=== PATIENT | male | born 1970 | race Caucasian/White ===

== ENCOUNTER 2016-05-20 09:11 | Emergency (ER) | payer OTHER ==
[~2016-05-20] VITALS: Ht 182.9 cm; Wt 100.0 kg
[2016-05-20 09:14] VITALS: BP 141/89; PULSE 64; RESP 14; O2SAT 98
--- NOTE | 2016-05-20 09:29 | ED.REPORT ---
HPI-General Illness Date of Service May 20, 2016 ED Provider: Jose Redman MD Pt is a healthy 45 y/o male presenting to the ED due to needle stick injury onset 08:40. The patient was helping to start an IV and apparently another coworker left a needle sticking straight out of the sharps container. He stuck his left thumb while wearing gloves. He immediately thoroughly cleaned the area. The needle was a 20 gauge safety needle with no visible blood on it. It is unknown if the patient has HIV or Hep C. He has called occupational health. Nursing Notes Stated Complaint: NEEDLE STICK Chief Complaint: Post Exposure Body Fluids Nursing Notes Reviewed: Yes Allergies: Coded Allergies: No Known Allergies (Unverified , 05/20/16) General Time Seen by MD: 09:19 Chief Complaint Other (Needle stick) Hx Obtained From: Patient Arrived By: Walk-in Sudden in Onset?: Yes Onset Occurred: 1 - 4 hours ago Symptom Duration: Since onset Severity: Current: No pain currently Severity: Maximum: No pain Recent Healthcare: No recent hospitalization Similar Sx Previous: No Past Medical History Past Medical History Completely healthy Past Surgical History Denies Smoking History Never Smoker Social History Is a nurse Alcohol Use: Denies alcohol use Drug Use: Denies drug use Other Social History: Good social support Ambulatory Status Independent Review of Systems Full Review of Systems Hematologic: Reports Bleeding Complete sys rev & neg: except as marked. Physical Exam Vital Signs Vital Signs Date Time Temp Pulse Resp B/P Pulse Ox O2 Delivery O2 Flow Rate FiO2 05/20/16 09:14 36.2 64 14 141/89 98 Room Air Initial VS: Reviewed, Vital signs normal Head / Eyes: Atraumatic, Normocephalic, PERRL ENT: Mucous membranes moist, Conjunctiva normal, No scleral icterus Neck: Supple, Full range of motion Respiratory: Breath sounds normal, Clear to auscultation, No respiratory distress Cardiovascular: Regular rate & rhythm, Heart sounds normal, Intact distal pulses Abdomen / GI: Soft, Non-tender Skin: Warm, Dry, No cyanosis Neurologic: Alert, Oriented, Nonfocal Psychiatric: Mood/affect normal, Behavior normal, Normal thought content General/Constitutional: Awake, Alert, No acute distress, Well appearing, Well developed, Well hydrated, Well nourished, Cooperative, Not toxic appearing Wrist / Hand: No snuffbox tenderness, No deformity, Neurologic intact, Vascular intact Tiny needle stick about distal pad of left thumb Interpretation & Diagnostics Lab Results Interpretation Test 05/20/16 10:15 Re-Eval/Medical Decision Med Decision/Clinical Course Pt is a healthy 45 y/o male presenting to the ED due to needle stick injury onset 08:40. The patient was helping to start an IV and apparently another coworker left a needle sticking straight out of the sharps container. He stuck his left thumb while wearing gloves. He immediately thoroughly cleaned the area. The needle was a 20 gauge safety needle with no visible blood on it. It is unknown if the patient has HIV or Hep C. He has called occupational health. Here in the emergency department patient is afebrile, room stable and no apparent distress of examination as above. The area of needle stick is very copiously cleaned and irrigated. She has no history of hepatitis C or HIV and is fully immunized. The source patient is felt to be low risk and has no history of communicable diseases. Occupational health has already been informed about the patient's exposure. Discussed prophylaxis and the patient does not risk to proceed with prophylaxis nor is generally recommended giving a relatively low risk needle stick. Postexposure panel has been ordered and obtained. Patient will follow-up with occupational health for further recommended testing. Patient will discuss with occupational health testing of source patient. Follow-up and return precautions reviewed in detail and patient discharged in good condition. Time of Eval: 10:05 Re-Evaluation/Progress Note: Pt rechecked. Informed pt of plan for treatment. Pt understands and agrees with plan for treatment. F/U and RTER warnings given. All questions addressed. Counseled Regarding: Diagnosis, Need for follow-up, When/why to return to ED Discharge & Departure Primary Impression: Needle stick injury Disposition: Home Discharge Condition All VS Reviewed: Yes Condition: Stable Patient Instructions: Needle Stick Injuries (ED) Additional Instructions: Please contact occupational health today and follow the typical protocol and discuss drawing the source patient. We have drawn your labs today. Return to the emergency department for signs of infection: fever, chills, redness of the area, swelling. Follow-up with your doctor as regularly scheduled. Referrals: Mariah Wilkerson MD (PCP) Scribe Attestation Portions of this note were transcribed by Michael Ventura. I, Dr. Redman personally performed the history, physical exam and medical decision-making; I reviewed and confirmed the accuracy of the information in the transcribed note. Signed by Tre Ray, 05/20/16 - 1015 copies to: Mariah Wilkerson MD, Beck O MD May 20, 2016 09:29 MICHAEL VENTURA May 20, 2016 10:07
== END 2016-05-20 10:30 | disposition home or self-care (01) ==
LOC: SED 09:11
DX: S61.032A Puncture wound without foreign body of left thumb without damage to nail, initial encounter (principal); W46.1XXA Contact with contaminated hypodermic needle, initial encounter; Y92.239 Unspecified place in hospital as the place of occurrence of the external cause; Y93.89 Activity, other specified; Y99.0 Civilian activity done for income or pay; Z77.21 Contact with and (suspected) exposure to potentially hazardous body fluids
CPT/HCPCS: 36415; 86706; 99283; G0433; G0472